=== PATIENT | female | born 1980 | race African-American/Black ===

== ENCOUNTER 2018-09-20 20:58 | Emergency (ER) | payer SELFPAY ==
[2018-09-20 22:24] LABS: Hemoglobin 12.5 g/dL (12.0-16.0); Mean Corpuscular HGB CONC 32.1 g/dL (32.0-36.0); Mean Corpuscular Hemoglobin 28.1 pg (27.0-31.0); Mean Corpuscular Volume 87.6 fL (78.0-98.0); Mean Platelet Volume 8.1 fL (7.4-10.4); Platelet Count 262 thou/uL (130-400); RBC Distribution Width 14.2 % (11.5-14.5); Red Blood Cell (RBC) Count 4.43 mill/uL (4.20-5.40); White Blood Cell (WBC) Count 8.2 thou/uL (4.8-10.8)
[2018-09-20 22:41] LABS: Eosinophils 5 % (0-10); Lymphocytes 54 % (21-51); MDiff Complete? YES; Monocytes 2 % (0-10); Neutrophil 37 % (42-75); Reactive Lymphocytes 2 % (0-10)
[2018-09-20 22:45] LABS: ALT (SGPT) 11 U/L (8-55); AST (SGOT) 14 U/L (5-34); Albumin 4.1 g/dL (3.5-5.0); Alkaline Phosphatase 105 U/L (40-150); Anion Gap 13 mmol/L (10-20); BUN (Urea Nitrogen) 10 mg/dL (7.0-18.7); Bilirubin, Total 0.5 mg/dL (0.2-1.2); Calc. Creatinine Clearance 0 mL/min (70-130); Calcium 9.5 mg/dL (7.8-10.44); Carbon Dioxide 19 mmol/L (22-29); Chloride 109 mmol/L (98-107); Estimated GFR-MDRD 88; Globulin 3.9 g/dL (2.4-3.5); Glucose 87 mg/dL (70-105); Sodium 137 mmol/L (136-145)
[2018-09-20] MEDS ORDERED: Metoclopramide HCl 10 MG/2 ML VIAL ONE (23:45)
[2018-09-20] MEDS ORDERED: Dexamethasone 10 MG/ML VIAL ONE (23:45)
[2018-09-20 23:55] LABS: Analyzer IN Cardio ER; CO2 Tension 32.9 mmHg (35.0-45.0); Calcium, Ionized 1.17 mmol/L (1.12-1.30); Carboxyhemoglobin (COHb) 1.3 gm% (0.0-3.0); Hemoglobin (Hb) 11.8 g/dL (12.0-16.0); O2 Tension (PaO2) 94.1 mmHg (80.0-100.0)
[2018-09-21] LABS: Puncture Site LBA
[2018-09-21 00:01] LABS: ALV-art Gradient 14.505 (0-20)
--- NOTE | 2018-09-21 07:52 | CT ---
PRELIMINARY REPORT/[facility]/EMERGENTY AFTER-HOURS PROCEDURE CT Head Without Contrast EXAM DATE/TIME: 09/21/2018 12:21 AM CLINICAL HISTORY: 37 years old, female; Pain; Headache; Headache not specified; Patient HX: [id number] presents to ed with C/O intermittent and worsening paresthesias to the tips of her fingers and toes bilaterally that has pro gressed to numbness. The problem began last night and is associated with a headache. Reports intermittent shooting pain in her arms bilaterally. Reports that she is moving and has been doing a l ot of heavy lifting. Denies fever, chills. Med HX: Diabetes. TECHNIQUE: Axial computed tomography images of the head/brain without contrast. COMPARISON: No relevant prior studies available. FINDINGS: Brain: No acute intracranial hemorrhage or mass effect. No definite acute infarct by CT. MRI could be more sensitive/specific for detection, as clinically di rected. Ventricles: Ventricle size is normal for age. Bones/joints: No definite acute skull fracture. Sinuses: Included paranasal sinuses are essentially clear. Mastoid air cells: No significant acute finding. IMPRESSION: 1. No acute intracranial bleed or mass effect. 2. No definite acute infarct by CT, see above. Thank you for allowing us to participate in the care of your patient. Dictated and Authenticated by: Andrea Castorena MD 09/21/2018 12:53 AM Central Time ([place] & [place]) FINAL REPORT CT BRAIN WITHOUT CONTRAST: Indication: History of headaches with paresthesia. IMPRESSION: I agree with the preliminary report by [facility]. No acute abnormality demonstrated. POS:
== END 2018-09-21 00:51 | disposition home or self-care (01) ==
LOC: ERS 20:58
DX: R20.2 Paresthesia of skin (principal); R51 Headache; E11.9 Type 2 diabetes mellitus without complications
CPT/HCPCS: 36415; 36416; 70450; 80053; 82805; 85025; 96365; 96375; J1100; J2765

== ENCOUNTER 2019-03-15 14:20 | Emergency (ER) | payer SELFPAY ==
[2019-03-15] MEDS ORDERED: Fluorescein Opthalmic Strip ONE (16:19)
[2019-03-15] MEDS ORDERED: Acetaminophen 500 MG TAB ONE (17:11)
== END 2019-03-15 17:20 | disposition home or self-care (01) ==
LOC: ERS 14:20
DX: T15.01XA Foreign body in cornea, right eye, initial encounter (principal); E11.9 Type 2 diabetes mellitus without complications; F17.210 Nicotine dependence, cigarettes, uncomplicated
CPT/HCPCS: 99283

== ENCOUNTER 2019-06-14 20:01 | Emergency (ER) | payer SELFPAY ==
[2019-06-14] MEDS ORDERED: Ibuprofen 800 MG TAB ONE (20:24)
[2019-06-14] MEDS ORDERED: Adacel (T-DAP) 0.5 ML SYRINGE ONE ×2 (20:24→20:25)
[2019-06-14] MEDS ORDERED: Acetaminophen 500 MG TAB ONE (20:24)
== END 2019-06-14 20:58 | disposition home or self-care (01) ==
LOC: ERS 20:01
DX: S00.83XA Contusion of other part of head, initial encounter (principal); F17.210 Nicotine dependence, cigarettes, uncomplicated; Y04.8XXA Assault by other bodily force, initial encounter
CPT/HCPCS: 90471; 90715

== ENCOUNTER 2020-05-20 12:49 | Emergency (ER) | payer OTHER, SELFPAY ==
[2020-05-20] MEDS ORDERED: Ondansetron PF 4 MG/2 ML Vial ONE (13:28)
[2020-05-20] MEDS ORDERED: Morphine 2 MG/ML VIAL ONE (13:28)
[2020-05-20 13:59] LABS: Hemoglobin 12.4 g/dL (12.0-16.0); Mean Corpuscular HGB CONC 32.8 g/dL (32.0-36.0); Mean Corpuscular Hemoglobin 29.1 pg (27.0-31.0); Mean Corpuscular Volume 88.6 fL (78.0-98.0); Mean Platelet Volume 7.8 fL (7.4-10.4); Platelet Count 318 thou/uL (130-400); RBC Distribution Width 14.8 % (11.5-14.5); Red Blood Cell (RBC) Count 4.28 mill/uL (4.20-5.40)
[2020-05-20 14:13] LABS: Band 1 % (5-11); Lymphocytes 56 % (21-51); MDiff Complete? YES; Monocytes 5 % (0-10); Neutrophil 37 % (42-75); Platelet Morphology Comment Appears Adequate; RBC Morphology Normal
[2020-05-20 14:15] LABS: ALT (SGPT) 35 U/L (8-55); AST (SGOT) 31 U/L (5-34); Albumin 3.8 g/dL (3.5-5.0); Alkaline Phosphatase 124 U/L (40-110); Anion Gap 12 mmol/L (10-20); BUN (Urea Nitrogen) 12 mg/dL (7.0-18.7); Bilirubin, Total 0.4 mg/dL (0.2-1.2); Calc. Creatinine Clearance 0 mL/min (70-130); Calcium 8.8 mg/dL (7.8-10.44); Carbon Dioxide 23 mmol/L (22-29); Chloride 105 mmol/L (98-107); Estimated GFR-MDRD Greater than 90; Globulin 4.1 g/dL (2.4-3.5); Glucose 83 mg/dL (70-105); Potassium 4.9 mmol/L (3.5-5.1); Protein, Total 7.9 g/dL (6.0-8.3); Sodium 135 mmol/L (136-145)
[2020-05-20 14:18] LABS: BHCG - Serum Negative (NEGATIVE); Pregs Control Background? CLEAR/WHITE (CLR/WHITE); Pregs Control Bar Appear? YES (CONTROL BAR)
[2020-05-20 14:51] LABS: Bilirubin Negative (Negative); Blood, Urine Negative (Negative); Clarity Clear (Clear); Glucose, Urine (Dipstick) Normal (Negative); Ketone, Urine Negative (Negative); Leukocyte Negative Leu/uL (Negative); Nitrite Negative (Negative); Protein, Urine (Dipstick) Negative (Neg-Trace); Specific Gravity, Urine 1.012 (1.002-1.036); Urobilinogen Normal mg/dL (Less than 2); pH, Urine 6.5 (5.0-9.0)
[2020-05-21 14:02] LABS: SARS-CoV-2 MS2 Positive; SARS-CoV-2 N Gene Negative; SARS-CoV-2 S Gene Negative; SARS-CoV-2 by NAA Not Detected (NotDetected); SARS-CoV-2 orf1ab Negative
== END 2020-05-20 16:06 | disposition home or self-care (01) ==
LOC: ERS 12:49
DX: B34.9 Viral infection, unspecified (principal); Z20.828 Contact with and (suspected) exposure to other viral communicable diseases; F17.210 Nicotine dependence, cigarettes, uncomplicated
CPT/HCPCS: 36415; 80053; 81003; 84703; 85025; 87086; 87635; 87804; 96361; 96374; 96375; J2270; J2405; U0003

== ENCOUNTER 2020-11-09 09:08 | Emergency (ER) | payer OTHER, SELFPAY | END 2020-11-09 09:47 | disposition home or self-care (01) | LOC: ERS 09:08 | DX: L50.9 Urticaria, unspecified (principal); Z87.891 Personal history of nicotine dependence | CPT/HCPCS: 99282 ==

== ENCOUNTER 2021-04-29 19:58 | Emergency (ER) | payer SELFPAY ==
[2021-04-30 08:04] LABS: SARS-CoV-2 PCR by NAA Not Detected (NotDetected)
== END 2021-04-29 20:31 | disposition home or self-care (01) ==
LOC: ERS 19:58
DX: R05 Cough (principal); R51.9 Headache, unspecified; Z20.822 Contact with and (suspected) exposure to COVID-19
CPT/HCPCS: 99283; U0003; U0005

== ENCOUNTER 2024-06-28 06:43 | Emergency (ER) | payer BC, SELFPAY ==
[2024-06-28] MEDS ORDERED: methylPREDNISolone Sod Succ/PF 125 MG/2 ML VIAL ONE (07:21)
[2024-06-28] MEDS ORDERED: Famotidine 20 MG TAB ONE (07:21)
[2024-06-28] MEDS ORDERED: diphenhydrAMINE 25 MG CAP ONE (07:21)
== END 2024-06-28 09:10 | disposition home or self-care (01) ==
LOC: ERS 06:43
DX: L50.9 Urticaria, unspecified (principal); R03.0 Elevated blood-pressure reading, without diagnosis of hypertension
CPT/HCPCS: 96372; 99282; J2919